=== PATIENT | female | born 1940 | race Caucasian/White ===

== ENCOUNTER 2021-08-11 14:37 | Outpatient (CLI) | payer MEDICARE, SELFPAY ==
--- NOTE | 2021-08-11 14:45 | USCV_ITS ---
Elena Gaines Age: 81 Gender: F : 1940 Exam Date: 08/11/2021 15:03 Ordering Phys: Yrn Sánchez MD Technologist: Fay Chang Exam Location: [facility] – [place] Indication: CHF BP: 126 / 61 HR: 60 Rhythm: Sinus Technical Quality: Adequate MEASUREMENTS (Male / Female) Normal Values 2D ECHO LV Diastolic Diameter PLAX 4.3 cm 4.2 - 5.9 / 3.9 - 5.3 cm LV Systolic Diameter PLAX 2.8 cm IVS Diastolic Thickness 1.5 cm 0.6 - 1.0 / 0.6 - 0.9 cm IVS Systolic Thickness 2.0 cm LVPW Diastolic Thickness 1.8 cm 0.6 - 1.0 / 0.6 - 0.9 cm LVPW Systolic Thickness 2.4 cm RV Chamber Size 2.3 cm LVOT Diameter 2.0 cm LV Ejection Fraction 2D Teich 63.4 % LV Ejection Fraction MOD 2C 47.1 % LV Ejection Fraction 2C AL 48.9 % LA Diameter 4.6 cm LA Width 4.0 cm LA Height 4.7 cm RA Width 3.8 cm RA Height 3.6 cm Aorta at Sinotubular Diameter 1.8 cm DOPPLER AV Peak Velocity 164.0 cm/s LVOT Peak Velocity 156.0 cm/s AV Area Cont Eq vti 3.8 cm squared AV Area Cont Eq pk 3.0 cm squared MV Area PHT 5.0 cm squared Mitral E to A Ratio 0.8 MV E' Velocity 42.5 cm/s Mitral E to MV E' Ratio 9.9 Mitral E to LV E' Lateral Ratio 7.9 Mitral E to LV E' Septal Ratio 13.2 TR Peak Velocity 270.0 cm/s TR Peak Gradient 29.2 mmHg PV Peak Velocity 115.0 cm/s RV Acceleration Time 0.1 s RV Ejection Time 0.3 s RV AcT/ET 0.3 FINDINGS Left Ventricle Normal left ventricular cavity size. Normal left ventricular systolic function. No regional wall motion abnormalities. Left ventricular ejection fraction is estimated at 55 %. Grade I/IV diastolic dysfunction (abnormal relaxation filling pattern), normal to mildly elevated filling pressures. Right Ventricle Normal right ventricular size. RVSP could not be calculated due to incomplete tricuspid regurgitation velocity profile. Right Atrium The right atrium is normal in size. Left Atrium The left atrium is normal in size. Mitral Valve Moderately thickened mitral valve. Moderate to severe mitral annular calcification. No mitral valve stenosis. Trace mitral valve regurgitation. Aortic Valve Aortic valve sclerosis without stenosis trace regurgitation. Tricuspid Valve Structurally normal tricuspid valve without significant stenosis or regurgitation. Pulmonary artery systolic pressure is normal. Pulmonic Valve Structurally normal pulmonic valve without significant stenosis. There is no pulmonic regurgitation. Pericardium Normal pericardium without effusion. Aorta Normal ascending aorta dimension. CONCLUSIONS 1-Normal left ventricular cavity size. Normal left ventricular systolic function. No regional wall motion abnormalities. Left ventricular ejection fraction is estimated at 55 %. Grade I/IV diastolic dysfunction (abnormal relaxation filling pattern), normal to mildly elevated filling pressures. 2-Moderately thickened mitral valve. Moderate to severe mitral annular calcification. No mitral valve stenosis. Trace mitral valve regurgitation. 3-Aortic valve sclerosis without stenosis trace regurgitation possible bioprosthetic aortic valve. 4-Normal right ventricular size. RVSP could not be calculated due to incomplete tricuspid regurgitation velocity profile. 5-Right atrial pressure is around 5 mm of mercury. Chito Andres MD (Electronically Signed) Final Date: 12 August 2021 13:14 S
== END 2021-08-11 14:38 | disposition home or self-care (01) ==
LOC: US 14:42
PROVIDERS: PCP Family Medicine; Visit Provider Family Medicine
DX: I50.9 Heart failure, unspecified (principal); I08.0 Rheumatic disorders of both mitral and aortic valves
CPT/HCPCS: 93306

== ENCOUNTER → 2022-05-03 16:22 | Outpatient (BNVA) | payer MEDICARE, SELFPAY | PROVIDERS: PCP Family Medicine; Visit Provider Family Medicine | DX: M10.9 Gout, unspecified (principal); G47.33 Obstructive sleep apnea (adult) (pediatric); I10 Essential (primary) hypertension; I35.0 Nonrheumatic aortic (valve) stenosis; E78.5 Hyperlipidemia, unspecified | CPT/HCPCS: 80053; 80061; 84550; 85025; 85610 ==

== ENCOUNTER → 2022-08-09 09:05 | Outpatient (BNVA) | payer MEDICARE, SELFPAY | PROVIDERS: PCP Family Medicine; Visit Provider Family Medicine | DX: Z79.01 Long term (current) use of anticoagulants (principal) | CPT/HCPCS: 85610 ==

== ENCOUNTER → 2022-09-06 09:38 | Outpatient (BNVA) | payer MEDICARE, SELFPAY | PROVIDERS: PCP Family Medicine; Visit Provider Family Medicine | DX: Z00.00 Encounter for general adult medical examination without abnormal findings (principal); I10 Essential (primary) hypertension | CPT/HCPCS: 80053; 85025 ==

== ENCOUNTER → 2022-09-17 11:49 | Outpatient (BNVA) | payer MEDICARE, SELFPAY | PROVIDERS: PCP Family Medicine; Visit Provider Family Medicine | DX: Z00.00 Encounter for general adult medical examination without abnormal findings (principal); I10 Essential (primary) hypertension; Z95.2 Presence of prosthetic heart valve; I80.9 Phlebitis and thrombophlebitis of unspecified site | CPT/HCPCS: 85610 ==

== ENCOUNTER → 2022-10-23 14:31 | Outpatient (BNVA) | payer MEDICARE, SELFPAY | PROVIDERS: PCP Family Medicine; Visit Provider Family Medicine | DX: Z95.2 Presence of prosthetic heart valve (principal); Z79.01 Long term (current) use of anticoagulants | CPT/HCPCS: 85610 ==

== ENCOUNTER → 2023-01-22 10:33 | Outpatient (BNVA) | payer MEDICARE, SELFPAY | PROVIDERS: PCP Family Medicine; Visit Provider Family Medicine | DX: Z95.2 Presence of prosthetic heart valve (principal) | CPT/HCPCS: 85610 ==

== ENCOUNTER → 2023-03-06 08:26 | Outpatient (BNVA) | payer MEDICARE, SELFPAY | PROVIDERS: PCP Family Medicine; Visit Provider Family Medicine | DX: I10 Essential (primary) hypertension (principal); E78.5 Hyperlipidemia, unspecified; I35.0 Nonrheumatic aortic (valve) stenosis; Z95.2 Presence of prosthetic heart valve; Z79.01 Long term (current) use of anticoagulants | CPT/HCPCS: 80053; 80061; 85025; 85610 ==

== ENCOUNTER → 2023-05-28 08:28 | Outpatient (BNVA) | payer MEDICARE, SELFPAY | PROVIDERS: PCP Family Medicine; Visit Provider Family Medicine | DX: Z79.01 Long term (current) use of anticoagulants (principal) | CPT/HCPCS: 85610 ==

== ENCOUNTER 2024-02-20 20:21 | Emergency (ER) | payer MEDICARE, SELFPAY ==
[2024-02-20 20:36] VITALS: BP 175/73; PULSE 95; RESP 20; TEMP 36.8; O2SAT 97; BMI 30.2
--- NOTE | 2024-02-20 21:06 | W.ED.DENTAL ---
HPI - Dental/Oral General: Chief complaint: Dental/Oral Stated complaint: Tooth/Mouth Pain Time Seen by Provider: 02/20/24 20:59 History of Present Illness: Patient presents to the ER with bleeding from the right dental procedure. This is a right lower molar area. Patient says that she went to the dentist this morning approximately 9:30 AM and had a bridge removed and her Coumadin was 2.5 and the dentist said if she was okay as long as she was under 3 but she has been bleeding and sleeping all day long. Patient tried to call the dentist before coming to the ER but was unavailable. And should appear for further evaluation and treatment. Review of Systems General: Reports: 10 or more systems reviewed and unremarkable except in HPI and below PFSH ED PFSH: Medical History Gout Obstructive sleep apnea Hyperlipidemia ASHD (arteriosclerotic heart disease) HTN (hypertension) Aortic stenosis Anticoagulant long-term use Surgical History S/P AVR (aortic valve replacement) Mechanical Family History Father Cancer LUNG Brother Cancer LUNG S/P PTCA (percutaneous transluminal coronary angioplasty) CAD (coronary artery disease) Sister S/P PTCA (percutaneous transluminal coronary angioplasty) CAD (coronary artery disease) Cancer BREAST Social History Smoking and tobacco/nicotine status: never used tobacco/nicotine Marital status: / Current occupational status: retired Physical Exam Const: COMMON NORMALS: no acute distress, average body habitus, patient oriented x3, no limitations, healthy appearing, alert and well nourished HENMT: COMMON NORMALS: normocephalic, atraumatic, hearing grossly normal bilaterally, external ears normal and Normal external nose present; gingiva not normal (Bleeding coming from the right lower molar area where surgery was performed) HEAD & SCALP: normocephalic and atraumatic NOSE: Normal external nose present EXTERNAL EAR: Yes external ears normal Neck/C-Spine: COMMON NORMALS: no JVD Chest: COMMONS NORMALS: normal inspection of the chest and normal palpation of entire chest wall Resp: COMMON NORMALS: normal respiratory effort, No retractions, No use of accessory muscles and clear to auscultation bilaterally AUSCULTATION: clear to auscultation bilaterally Cardio: COMMON NORMALS: no JVD, regular rate, regular rhythm, S1 normal heart sound present, S2 normal heart sound present, No gallops present (Cardio), No clicks present (Cardio), No murmurs present (Cardio) and No rub (Cardio) RATE: regular rate RHYTHM: regular rhythm HEART SOUNDS: S1 normal heart sound present and S2 normal heart sound present GI: COMMON NORMALS: Normal to inspection, nondistended, normoactive bowel sounds present, Soft to palpation, non-tender and No hepatosplenomegaly present PALPATION: Yes Soft to palpation and Yes No hepatosplenomegaly present Neuro: COMMON NORMALS: patient oriented x3 SENSORIUM/ORIENTATION: Yes alert Course Vital Signs: Vital signs: Vital Signs Temperature 98.2 F 02/20/24 20:36 Pulse Rate 95 02/20/24 20:36 Respiratory Rate 20 H 02/20/24 20:36 Blood Pressure 175/73 02/20/24 20:36 Pulse Oximetry 97 02/20/24 20:36 [facility] - Dental/Oral Medical Decision Making Patient was bleeding from her post bridge removal on her right lower mandibular area. Patient had gauze soaked in TXA placed on the area. This stopped her bleeding. Patient be discharged home. Differential Diagnosis Unlikely gingival abscess, dental caries, toothache, dental abscess, fracture of tooth or aphthous ulcer Medical Records I reviewed the patient's medical records. Lab Data I reviewed the patient's lab results. No radiology studies performed this visit Discharge Plan Discharge Patient Disposition: Home Clinical Impression: Postoperative bleeding from mouth Condition: Stable Prescriptions: No Action potassium 99 mg tablet PO DAILY furosemide 40 mg tablet 40 mg PO DAILY Qty: 90 11RF Mag 64 64 mg tablet,delayed release (DR/EC) 64 mg PO DAILY Qty: 90 3RF metoprolol tartrate 50 mg tablet 50 mg PO BID Qty: 180 3RF warfarin 2 mg tablet 2 mg PO DAILY Qty: 60 11RF warfarin 3 mg tablet 3 mg PO DAILY Qty: 90 3RF Rx Instructions: total daily dose of 7mg daily simvastatin 40 mg tablet 40 mg PO DAILY Qty: 90 11RF allopurinol 300 mg tablet 300 mg PO DAILY Qty: 90 11RF hydralazine 25 mg tablet 25 mg PO BID Qty: 180 3RF warfarin 4 mg tablet 4 mg PO DAILY Qty: 30 11RF Discharge Orders: Discharge ED (Routine); Ordered 02/20/24 Ordered By: Wan Cherry Referrals: Lowell Dumas MD [Primary Care Provider] - 1 week Patient Instructions: Postoperative Bleeding (ED) Activity Restrictions/Additional Instructions: Please try not to remove the clot over your surgical area of your tongue this may cause bleeding. If this happens please feel free to try a very cold compress such as a wrapped ice cube and put pressure to the area. If this does not stop please feel free to return to the ER. Otherwise follow-up with your dentist in the morning for definitive treatment. Coding Level of Care Code ED Telehealth Nurse Educator for Lucía Perez
[2024-02-20] MEDS: tranexamic acid 1,000 mg/10mL SDV 1000 MG XX (21:10)
== END 2024-02-20 22:46 | disposition home or self-care (01) ==
PROVIDERS: Emergency Provider Emergency Medicine; PCP Family Medicine
DX: K91.840 Postprocedural hemorrhage of a digestive system organ or structure following a digestive system procedure (principal); Z79.01 Long term (current) use of anticoagulants; E78.5 Hyperlipidemia, unspecified; I10 Essential (primary) hypertension
CPT/HCPCS: 99283

== ENCOUNTER 2024-09-22 13:47 | Outpatient (CLI) | payer MEDICARE, SELFPAY ==
--- NOTE | 2024-09-22 13:51 | XR_ITS ---
WS: [id number] DEXA (DUAL ENERGY X-RAY ABSORPTIOMETRY) Bone mineral density was performed using a Librato machine. HISTORY: OSTEOPOROSIS COMPARISON: None available. Lumbar spine BMD (L1-L4): 1.357 g/cm2 T score: 1.5 Z score: 2.2 Total hip BMD: Left: 1.003 g/cm2. T score: 0.0 Z score: 1.4 Right: 0.894 g/cm2. T score: -0.9 Z score: 0.5 10 year probability of a major osteoporotic fracture is 9.6%. XR/XR DEXA axial skeleton* 07036 IMPRESSION: NORMAL BONE MINERAL DENSITY based upon the WHO classification for females.
== END 2024-09-22 13:48 | disposition home or self-care (01) ==
LOC: RAD 13:47
PROVIDERS: PCP Family Medicine; Visit Provider Family Medicine
DX: Z13.820 Encounter for screening for osteoporosis (principal); M81.0 Age-related osteoporosis without current pathological fracture
CPT/HCPCS: 77080

== ENCOUNTER 2024-11-14 14:29 | Observation (INO) | payer MEDICARE, SELFPAY ==
[2024-11-14] VITALS (13 sets, daily range): BP systolic 140–182; BP diastolic 64–106; PULSE 91–121; RESP 15–34; TEMP 36.8; O2SAT 88–98; BMI 34.6
--- NOTE | 2024-11-14 14:33 | XRR_ITS ---
PROCEDURE INFORMATION: Exam: XR Chest Exam date and time: 11/14/2024 3:04 PM Age: 84 years old Clinical indication: Shortness of breath; Prior surgery; Surgery date: 6+ months; Surgery type: Cabg; Additional info: SOB; Afib TECHNIQUE: Imaging protocol: Radiologic exam of the chest. Views: 1 view. COMPARISON: No relevant prior studies available. FINDINGS: Lungs: No focal consolidation. Pleural spaces: No evidence of pneumothorax. No evidence of pleural effusion. 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 Bones/joints: No evidence of acute osseous abnormality. XR/XR chest 1V portable [id number] IMPRESSION: 1. No acute cardiopulmonary abnormality.
--- NOTE | 2024-11-14 14:37 | ECG_ITS ---
[facility] Date: 2024-11-14 Pat Name: Elena Gaines Department: Room: Gender: Female Color Weigher: : 1940 Requested By: Lucina Denise Order Number: [id number] Lino MD: Noe Palacios M.D. Measurements Intervals Perry Rate: 118 P: 0 DE: 0 QRS: 38 QRSD: 145 T: 81 QT: 302 QTc: 423 Interpretive Statements ATRIAL FIBRILLATION WITH RAPID VENTRICULAR RESPONSE INTRAVENTRICULAR CONDUCTION DELAY [130+ ms QRS DURATION] No previous ECG available for comparison Electronically Signed On 11-14-2024 21:23:53 CORRECTIVE THERAPIST by Noe Palacios M.D. [email or web address]
--- NOTE | 2024-11-14 14:48 | ED_ITS ---
HPI - Arrhythmia/Palpitations 2 General: Chief Complaint: Arrhythmia/Palpitations Stated Complaint: afib Time Seen by Provider: 11/14/24 14:33 History of Present Illness: 84-year-old woman with a history of [facility] anical aortic valve replacement on chronic Coumadin therapy, hypertension, hyperlipidemia who presents emergency room with cough and shortness of breath. She has had a cough for a couple of days and then has become short of breath. She was seen and urgent care today and sent to the emergency room because she was in atrial fibrillation with rapid ventricular response there. She has no history of this. She reports painful cough. Shortness of breath. Malaise. No known fevers. No altered mental status. She has had a headache and shortness of breath. Related Data Home Medications Medication Instructions Recorded Confirmed potassium 99 mg tablet mg PO DAILY 04/19/20 11/14/24 Previous Rx's Medication Instructions Recorded warfarin 2 mg tablet 2 mg PO DAILY #60 tabs 01/28/23 magnesium chloride 64 mg 64 mg PO DAILY #90 tabs 03/06/23 (magnesium chloride) tablet,delayed release (Mag 64) metoprolol tartrate 50 mg tablet 50 mg PO BID #180 tabs 03/06/23 warfarin 3 mg tablet 3 mg PO DAILY #90 tabs 03/09/23 simvastatin 40 mg tablet 40 mg PO DAILY #90 tabs 05/22/23 allopurinol 300 mg tablet 300 mg PO DAILY #90 tabs 07/18/23 warfarin 4 mg tablet 4 mg PO DAILY #30 tabs 02/19/24 furosemide 40 mg tablet 40 mg PO DAILY #90 tabs 06/10/24 spironolactone 25 mg tablet 25 mg PO BID #60 tabs 06/12/24 hydralazine 25 mg tablet 25 mg PO BID #180 tabs 08/13/24 Allergies Allergy/AdvReac Type Severity Reaction Status Date / Time amlodipine Allergy Unknown Unknown Verified 11/14/24 13:28 benazepril Allergy Unknown Unknown Verified 11/14/24 13:28 lisinopril AdvReac cough Verified 11/14/24 13:28 Review of Systems 2 Narrative: Constitutional symptoms: Negative except as documented in HPI. Skin symptoms: Negative except as documented in HPI. Eye symptoms: Negative except as documented in HPI. ENMT symptoms: Negative except as documented in HPI. Respiratory symptoms: Negative except as documented in HPI. Cardiovascular symptoms: Negative except as documented in HPI. Gastrointestinal symptoms: Negative except as documented in HPI. Genitourinary symptoms: Negative except as documented in HPI. Musculoskeletal symptoms: Negative except as documented in HPI. Neurologic symptoms: Negative except as documented in HPI. Psychiatric symptoms: Negative except as documented in HPI. Endocrine symptoms: Negative except as documented in HPI. PFSH ED 2 PFSH: Medical History Gout Obstructive sleep apnea Hyperlipidemia ASHD (arteriosclerotic heart disease) HTN (hypertension) Aortic stenosis Anticoagulant long-term use Surgical History S/P AVR (aortic valve replacement) Mechanical Family History Father Cancer LUNG Brother Cancer LUNG S/P PTCA (percutaneous transluminal coronary angioplasty) CAD (coronary artery disease) Sister S/P PTCA (percutaneous transluminal coronary angioplasty) CAD (coronary artery disease) Cancer BREAST Social History Smoking and tobacco/nicotine status: never used tobacco/nicotine Marital status: / Current occupational status: retired Physical Exam 2 Narrative: EXAM NARRATIVE: General: Alert, no acute distress. Skin: Warm, dry. Head: Normocephalic, atraumatic. Neck: Supple, trachea midline. Eye: Extraocular movements are intact. Ears, nose, mouth and throat: mucosa moist. Cardiovascular: Tachycardic, irregular, Normal peripheral perfusion. No edema Respiratory: Lungs are clear to auscultation, respirations are non-labored, breath sounds are equal, Symmetrical chest wall expansion. Gastrointestinal: Soft, Nontender, Non distended Musculoskeletal: Normal ROM, no deformity. Neurological: Alert and oriented, No focal neurological deficit observed. Psychiatric: Cooperative, appropriate mood & affect. Course 2 Vital Signs: Vital signs: Vital Signs Temperature 98.2 F 11/14/24 14:33 Pulse Rate 111 H 11/14/24 19:23 Respiratory Rate 17 11/14/24 19:23 Blood Pressure 182/87 11/14/24 19:23 Pulse Oximetry 97 11/14/24 19:23 Oxygen Delivery Me thod Room Air 11/14/24 19:23 MDM - Arrhythmia/Palpitations Medical Decision Making Differential diagnosis for patient with shortness of breath includes but is not limited to and based on the above HPI, review of systems and physical exam: Pneumonia. Bronchitis. Asthma or COPD with acute exacerbation. Acute coronary syndrome / IN. Pulmonary embolism. Anxiety. Congestive heart failure. Viral infections including influenza and Covid-19. Atrial fibrillation. Anxiety. Pleural effusion. Pneumothorax. Orders placed to evaluate differential diagnosis based on the above differential, HPI and physical exam EKG: Time 1437. Rate 118. Atrial fibrillation with rapid ventricular response, No ST-T changes, no ectopy, This was reviewed and interpreted by myself the ER physician at 1440 Repeat EKG: Time 1701. Rate 94. Atrial fibrillation with controlled rate, No ST-T changes, no ectopy, This was reviewed and interpreted by myself the ER physician 1704. Rate has decreased by about 25 bpm. As compared to EKG taken previously in the emergency room today. Chest x-ray: No acute process. No infiltrate. No pneumothorax. This was reviewed and interpreted by myself the emergency room physician. I also reviewed the radiology report.: No cardiomegaly. No obvious infiltrates. No pneumothorax. Patient does have sternotomy wires. CT of the chest without contrast: No acute cardiopulmonary abnormalities. This was reviewed and interpreted by myself the emergency room physician. I also reviewed the radiology report. Lab Review: Laboratory results were reviewed and interpreted by myself the emergency room physician. Patient has some leukocytosis with a white count of 16,000. However this is not left shifted. BUN/creatinine are 53 and 2. This is slightly above her baseline. She does have some chronic kidney disease. Creatinine has ranged between 1.3 and 1.9 on previous lab draws. INR is significantly elevated at 7.86 UpToDate Recommendation for Warfarin toxicity without bleeding INR >10 without bleeding ? If the INR is >10 and the patient does not have clinically significant bleeding, warfarin should be held until the INR falls into the therapeutic range. Vitamin K can be administered as an oral dose of 2.5 to 5 mg, depending on the bleeding risk of the patient INR 4.5 to 10 without bleeding ? If the INR is between 4.5 and 10 and the patient does not have clinically significant bleeding, warfarin is held temporarily (eg, one or two doses), with or without administration of a small dose of oral vitamin K (1 to 2.5 mg) low dose of oral vitamin K for individuals with a greater risk of bleeding (eg, older, prior bleeding) and a lower risk of thromboembolism. ?Older age (odds ratio [OR] 1.2 per decade of life) ?Higher index INR (OR 1.25 per unit of elevation) ?Lower warfarin maintenance dose (OR 0.87 per 10 mg increase in total weekly dose) ?Decompensated heart failure (OR 2.79; 95% CI 1.30-5.98) ?Active cancer (OR 2.48; 95% CI 1.11-5.57) I reviewed the patient's medical record. Reexamination: Patient heart rate has come down from the 130s and 120s to around 100-110. No altered mental status. No acute increased work of breathing. No oxygen requirements. Consultation: I spoke with Dr. Dickerson who is on-call for the hospitalist service who agrees to admission. Assessment and plan: Bronchitis Coumadin toxicity New onset atrial fibrillation A-fib with RVR Leukocytosis Hypertension ?2.5 mg p.o. vitamin K. Holding Coumadin. IV doxycycline. IV Decadron. -I discussed the patient with the hospitalist on-call who is admitting the patient. - Discussed findings and plan with patient. Answered any questions. - All laboratory values were reviewed and interpreted personally by myself, the ER physician - All imaging was reviewed and interpreted personally by myself, the ER physician. - Evaluation and treatment of this problem were appropriate in the emergency setting Lab Data 11/14/24 14:51 11/14/24 14:51 Radiology Impressions Chest X-Ray 11/14/24 14:33 IMPRESSION: 1. No acute cardiopulmonary abnormality. Chest CT 11/14/24 16:09 IMPRESSION: 1. No evidence of acute abnormality within limitations of a noncontrast exam. 2. Right-sided thyroid nodule. Correlation with thyroid function tests and follow-up outpatient thyroid ultrasound is recommended. Laboratory Results WBC 16.31 10^3/uL (3.29-11.43) H 11/14/24 14:51 RBC 4.52 10^6/uL (3.85-5.65) 11/14/24 14:51 Hgb 13.10 g/dL (11.27-16.99) 11/14/24 14:51 Hct 40.4 % (36-47) 11/14/24 14:51 MCV 89.4 fl (85-98) 11/14/24 14:51 MCH 29.0 pg (27-33) 11/14/24 14:51 MCHC 32.4 g/dL (30-55) 11/14/24 14:51 RDW 14.0 % (12.1-15.1) 11/14/24 14:51 Plt Count 324 10^3/cmm (157-399) 11/14/24 14:51 MPV 10.0 fL (7.4-10.4) 11/14/24 14:51 Neut % (Auto) 58.7 % 11/14/24 14:51 Lymph % (Auto) 33.8 % 11/14/24 14:51 [place] % (Auto) 7.0 % 11/14/24 14:51 Eos % (Auto) 0.1 % 11/14/24 14:51 Baso % (Auto) 0.2 % 11/14/24 14:51 Neut # (Auto) 9.56 10^3/uL (1.8-7.7) H 11/14/24 14:51 Lymph # (Auto) 5.5 10^3/uL (0.8-4.8) H 11/14/24 14:51 [place] # (Auto) 1.1 10^3/uL (0.2-0.9) H 11/14/24 14:51 Eos # (Auto) 0.0 10^3/uL (0.0-0.8) 11/14/24 14:51 Baso # (Auto) 0.0 10^3/uL (0.0-0.1) 11/14/24 14:51 Nucleated RBC % (auto) 0 % 11/14/24 14:51 Nucleated RBCs # 0.0 /100WBC 11/14/24 14:51 PT 69.60 SECONDS (12.1-14.9) H 11/14/24 14:51 INR 7.86 (0.8-1.2) H* 11/14/24 14:51 APTT 166.6 SECONDS (23.9-36.7) H* 11/14/24 14:51 Sodium 132 mmol/L (136-145) L 11/14/24 14:51 Potassium 4.4 mmol/L (3.5-5.1) 11/14/24 14:51 Chloride 92 mmol/L (98-107) L 11/14/24 14:51 Carbon Dioxide 23 mmol/L (22-29) 11/14/24 14:51 Anion Gap 21.4 (5-19) H 11/14/24 14:51 BUN 53 mg/dL (8-23) H 11/14/24 14:51 Creatinine 2.0 mg/dL (0.5-0.9) H 11/14/24 14:51 GFR Calculation Not Reportable 11/14/24 14:51 Glucose 109 mg/dL (65-115) 11/14/24 14:51 Calculated Osmolality 289 mOsm/kg (285-295) 11/14/24 14:51 Lactic Acid 1.8 mmol/L (0.5-2.2) 11/14/24 14:51 Calcium 11.3 mg/dL (8.5-10.5) H 11/14/24 14:51 Magnesium 2.1 mg/dL (1.7-2.3) 11/14/24 14:51 Total Bilirubin 0.3 mg/dL (0.15-1.2) 11/14/24 14:51 AST 44 U/L (0-32) H 11/14/24 14:51 ALT 36 U/L (0-33) H 11/14/24 14:51 Alkaline Phosphatase 123 U/L (35-105) H 11/14/24 14:51 Troponin T Baseline 25 ng/L (0-10) H 11/14/24 14:51 Troponin T 120 Minute 23.09 ng/L (0-10) H 11/14/24 17:55 Delta Troponin T -1.91 ABS# (0-10) L 11/14/24 17:55 NT-Pro-B Natriuret Pep 1787 pg/mL (0-450) H 11/14/24 14:51 Total Protein 8.1 g/dL (6.6-8.7) 11/14/24 14:51 Albumin 4.2 g/dL (3.5-5.2) 11/14/24 14:51 Globulin 3.9 g/dL (1.3-4.6) 11/14/24 14:51 TSH 0.98 uIU/mL (0.27-4.20) 11/14/24 14:51 Urine Color Dark yellow (Yellow) A 11/14/24 17:38 Urine Appearance Clear (CLEAR) 11/14/24 17:38 Urine pH 5.0 (5-7) 11/14/24 17:38 Ur Specific [place] 1.022 (1.005-1.030) 11/14/24 17:38 Urine Protein Negative (Negative) 11/14/24 17:38 Urine Glucose (UA) Negative (Normal) 11/14/24 17:38 Urine Ketones 1+ (Negative) H 11/14/24 17:38 Urine Blood Negative (Negative) 11/14/24 17:38 Urine Nitrate Negative (Negative) 11/14/24 17:38 Urine Bilirubin Negative (Negative) 11/14/24 17:38 Urine Urobilinogen 0.2 mg/dL (Negative) 11/14/24 17:38 Ur Leukocyte Esterase 1+ (Negative) A 11/14/24 17:38 Urine RBC 0-2 /hpf (0-2) 11/14/24 17:38 Urine WBC 11-20 /hpf (0-5) H 11/14/24 17:38 Ur Squamous Epith Cells 0-5 /hpf (0-5) 11/14/24 17:38 Amorphous Sediment Not Reportable 11/14/24 17:38 Urine Bacteria None seen /hpf (NONE) 11/14/24 17:38 Hyaline Casts 8.26 /lpf 11/14/24 17:38 Adenovirus (PCR) Not detected (NOT DETECT) 11/14/24 16:59 C. pneumoniae DNA (PCR) Not detected (NOT DETECT) 11/14/24 16:59 Coronavirus (PCR) Negative (Negative) 11/14/24 14:46 Coronavirus 229E (PCR) Not detected (NOT DETECT) 11/14/24 16:59 Human Metapneumovir PCR Not detected (NOT DETECT) 11/14/24 16:59 Influenza A (H1) PCR Not detected (NOT DETECT) 11/14/24 16:59 Influenza A (PCR) Negative (Negative) 11/14/24 14:46 Influ A (H1/09) PCR Not detected (NOT DETECT) 11/14/24 16:59 Influenza A (H3) PCR Not detected (NOT DETECT) 11/14/24 16:59 Influenza Type A (PCR) Not detected (NOT DETECT) 11/14/24 16:59 Influenza Type B (PCR) Not detected (NOT DETECT) 11/14/24 16:59 M. pneumoniae (PCR) Not detected (NOT DETECT) 11/14/24 16:59 Parainfluenza 1 (PCR) Not detected (NOT DETECT) 11/14/24 16:59 Parainfluenza 2 (PCR) Not detected (NOT DETECT) 11/14/24 16:59 Parainfluenza 3 (PCR) Not detected (NOT DETECT) 11/14/24 16:59 Parainfluenza 4 (PCR) Not detected (NOT DETECT) 11/14/24 16:59 RSV (PCR) Negative (Negative) 11/14/24 14:46 RSV Type A (PCR) Not detected (NOT DETECT) 11/14/24 16:59 RSV Type B (PCR) Not detected (NOT DETECT) 11/14/24 16:59 Entero/Rhino (PCR) Not detected (NOT DETECT) 11/14/24 16:59 SARS-CoV-2 (PCR) Not detected (NOT DETECT) 11/14/24 16:59 All radiology interpretation(s) finalized by discharge Discharge Plan Discharge Condition: Stable Prescriptions: No Action potassium 99 mg tablet PO DAILY Mag 64 64 mg tablet,delayed release (DR/EC) 64 mg PO DAILY Qty: 90 3RF metoprolol tartrate 50 mg tablet 50 mg PO BID Qty: 180 3RF warfarin 2 mg tablet 2 mg PO DAILY Qty: 60 11RF warfarin 3 mg tablet 3 mg PO DAILY Qty: 90 3RF Rx Instructions: total daily dose of 7mg daily simvastatin 40 mg tablet 40 mg PO DAILY Qty: 90 11RF allopurinol 300 mg tablet 300 mg PO DAILY Qty: 90 11RF warfarin 4 mg tablet 4 mg PO DAILY Qty: 30 11RF furosemide 40 mg tablet 40 mg PO DAILY Qty: 90 11RF spironolactone 25 mg tablet 25 mg PO BID Qty: 60 11RF hydralazine 25 mg tablet 25 mg PO BID Qty: 180 3RF Referrals: Lowell Dumas MD [Primary Care Provider] - Coding Level of Care Code ED Crane Follower for Chg Fwd
[2024-11-14 15:03] LABS: Basophils % 0.2 %; Eosinophils % 0.1 %; Hematocrit 40.4 % (36-47); Lymphocytes # 5.5 10^3/uL (0.8-4.8); Lymphocytes % 33.8 %; Mean Corpuscular HGB Conc 32.4 g/dL (30-55); Mean Corpuscular Volume 89.4 fl (85-98); Monocytes # 1.1 10^3/uL (0.2-0.9); Neutrophils # 9.56 10^3/uL (1.8-7.7); Neutrophils % 58.7 %; Nucleated Red Blood Cells % 0 %; Platelet Count 324 10^3/cmm (157-399); Red Blood Count 4.52 10^6/uL (3.85-5.65); White Blood Count 16.31 10^3/uL (3.29-11.43)
--- NOTE | 2024-11-14 15:05 | PC.NURSE ---
Patient requesting Tylenol for her headache. Reports that she usually takes this at home and was not able to today. Verbal order from Dr Marquez for Tylenol po 1 gm. RBVO and placed.
[2024-11-14] MEDS: acetaminophen 500 mg Tablet 1000 MG PO (15:08)
[2024-11-14 15:20] LABS: Slide Review Slide Review Perform
[2024-11-14 15:21] LABS: Troponin(5th) Baseline 25 ng/L (0-10)
[2024-11-14 15:22] LABS: Lactic Sepsis W/Reflex 1.8 mmol/L (0.5-2.2)
[2024-11-14 15:35] LABS: INR 7.86 (0.8-1.2); Partial Thromboplastin Time 166.6 SECONDS (23.9-36.7)
[2024-11-14 15:36] LABS: Alanine Aminotransferase 36 U/L (0-33); Albumin Level 4.2 g/dL (3.5-5.2); Alkaline Phosphatase 123 U/L (35-105); Anion Gap 21.4 (5-19); Aspartate Amino Transferase 44 U/L (0-32); Blood Urea Nitrogen 53 mg/dL (8-23); Calcium 11.3 mg/dL (8.5-10.5); Carbon Dioxide 23 mmol/L (22-29); Chloride 92 mmol/L (98-107); Creatinine Clr Calc Pharmacy 23.3551; Globulin 3.9 g/dL (1.3-4.6); Glucose 109 mg/dL (65-115); Magnesium 2.1 mg/dL (1.7-2.3); Osmolality Calculated 289 mOsm/kg (285-295); Potassium 4.4 mmol/L (3.5-5.1); Sodium 132 mmol/L (136-145); Total Bilirubin 0.3 mg/dL (0.15-1.2); Total Protein 8.1 g/dL (6.6-8.7)
[2024-11-14 15:39] LABS: Covid PCR NEGATIVE (Negative); Influenza A NEGATIVE (Negative); Influenza B NEGATIVE (Negative); Respiratory Syncytial Virus Ce NEGATIVE (Negative)
[2024-11-14 15:54] LABS: NT Pro B Type Natriuretic Pept 1787 pg/mL (0-450); Thyroid Stimulating Hormone 0.98 uIU/mL (0.27-4.20)
--- NOTE | 2024-11-14 16:09 | CTR_ITS ---
PROCEDURE INFORMATION: Exam: CT Chest Without Contrast; Diagnostic Exam date and time: 11/14/2024 4:33 PM Age: 84 years old Clinical indication: Abnormal findings; Abnormal radiologic exam of lung or chest; Prior surgery; Surgery date: 6+ months; Surgery type: Heart; Additional info: Abnormal chest xray TECHNIQUE: Imaging protocol: Diagnostic computed tomography of the chest without contrast. Radiation optimization: All CT scans at this facility use at least one of these dose optimization techniques: automated exposure control; mA and/or kV adjustment per patient size (includes targeted exams where dose is matched to clinical indication); or iterative reconstruction. COMPARISON: CR (CHEST, ) 11/14/2024 3:04 PM RADIATION DOSE METRICS: Total DLP (mGy-cm): 433.65 FINDINGS: Thyroid: Inferior right thyroid nodule measuring approximately 2.5 cm extending into the superior mediastinum. Correlation with thyroid function tests and follow-up outpatient thyroid ultrasound is recommended. Lungs: No focal consolidation. No pneumothorax. Pleural spaces: No pleural effusion. Heart: No cardiomegaly. No pericardial effusion. Coronary arteries: There are incidental coronary artery calcifications. Mediastinal space: Trachea and airway are grossly patent. Postsurgical changes of the mediastinum compatible with prior aortic valve replacement and ascending aortic/root repair. Lymph nodes: No evidence of mediastinal adenopathy. Evaluation for hilar adenopathy is limited by lack of IV contrast. Vasculature: Atherosclerosis without evidence of aneurysmal dilatation of the thoracic aorta. Evaluation for acute vascular injury or thrombosis is limited by lack of IV contrast. Bones/joints: No evidence of acute fracture or aggressive osseous lesion. Soft tissues: No evidence of fluid collection or hematoma in the superficial soft tissues. Other findings: No evidence of acute abnormality in the upper abdomen. CT/CT chest wo con [id number] IMPRESSION: 1. No evidence of acute abnormality within limitations of a noncontrast exam. 2. Right-sided thyroid nodule. Correlation with thyroid function tests and follow-up outpatient thyroid ultrasound is recommended.
--- NOTE | 2024-11-14 17:01 | ECG_ITS ---
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 Measurements Intervals [place] Rate: 94 P: 0 AR: 0 QRS: -9 QRSD: 103 T: 79 QT: 329 QTc: 412 Interpretive Statements ATRIAL FIBRILLATION SEPTAL MYOCARDIAL INFARCTION , OF INDETERMINATE AGE [40+ ms Q WAVE IN V1/V2] Compared to ECG 11/14/2024 14:37:27 Myocardial infarct finding now present Intraventricular conduction delay no longer present Electronically Signed On 11-14-2024 21:34:02 SNORKELLING INSTRUCTOR by Noe Palacios M.D. [email or web address]
[2024-11-14 17:48] LABS: Bilirubin Urine Negative (Negative); Blood Urine Negative (Negative); Glucose Urine UA Negative (Normal); Ketones Urine 1+ (Negative); Leukocyte Esterase Urine 1+ (Negative); Nitrate Urine Negative (Negative); Protein Urine Negative (Negative); Specific Gravity, Urine 1.022 (1.005-1.030); Urine Appearance Clear (CLEAR); Urine Color Dark Yellow (Yellow); Urobilinogen Urine 0.2 mg/dL (Negative)
[2024-11-14 17:50] LABS: Bacteria Urine None Seen /hpf; Hyaline Casts Urine 8.26 /lpf; RBC Urine 0-2 /hpf (0-2); Squamous Epithelial Cell Urine 0-5 /hpf (0-5)
[2024-11-14 17:51] LABS: Add Urine Culture? No; UA Slide Review UA Slide Review Perf
[2024-11-14] MEDS: phytonadione (ADULT) 10 mg/mL Ampule 1 mL 2.5 MG PO (18:02)
[2024-11-14 18:22] LABS: Troponin 5 2HR 23.09 ng/L (0-10)
[2024-11-14 18:23] LABS: Troponin 5 2HR Delta -1.91 ABS# (0-10)
[2024-11-14 18:51] LABS: Adenovirus Not Detected (NOT DETECT); Chlamydia Pneumoniae Not Detected (NOT DETECT); Coronavirus 229E,HKU1,NL63,OC4 Not Detected (NOT DETECT); Human Metapneumovirus Not Detected (NOT DETECT); Human Rhinovirus/Enterovirus Not Detected (NOT DETECT); Influenza A Not Detected (NOT DETECT); Influenza A H1 Not Detected (NOT DETECT); Influenza A H1-2009 Not Detected (NOT DETECT); Influenza A H3 Not Detected (NOT DETECT); Influenza B Not Detected (NOT DETECT); Mycoplasma Pneumoniae Not Detected (NOT DETECT); Parainfluenza Virus Type 1 Not Detected (NOT DETECT); Parainfluenza Virus Type 2 Not Detected (NOT DETECT); Parainfluenza Virus Type 3 Not Detected (NOT DETECT); Parainfluenza Virus Type 4 Not Detected (NOT DETECT); Respiratory Syncytial Virus A Not Detected (NOT DETECT); Respiratory Syncytial Virus B Not Detected (NOT DETECT); SARS-COV-2 Not Detected (NOT DETECT)
[2024-11-14] MEDS: dexamethasone 10 mg/mL INJ IVP (19:20)
--- NOTE | 2024-11-14 19:27 | P.HP_ITS ---
Providers/Chief Complaint 2 Primary Care Provider: Lowell Dumas MD Chief Complaint: afib History of Present Illness Elena Gaines is a 84 year old female with history of chronic anticoagulation with Coumadin, mechanical aortic valve, went to urgent care clinic for recurrent bouts of cough, generalized weakness and fatigue and blood in her sputum. Patient has been noticing excessive bouts of cough and recent blood in her sputum for last 2 to 3 days, she has not noticed any fever, no chest pain or diarrhea. P no active chest pain. From urgent care clinic she was sent to the ER for further evaluation for concern related to A-fib RVR she was tachycardic, initially she was in A-fib RVR on arrival which converted to sinus rhythm spontaneously, clinically she looks dehydrated, at home she takes Lasix on daily basis She has leukocytosis to receive doxycycline CT chest did not show pneumonia ER physician gave her vitamin K, troponin trending down She does not have history of A-fib at the time of my evaluation she is in sinus rhythm heart rate 10 5-1 10 For dehydration we will give her 500 mL LR bolus Review of Systems 2 Const: Denies: fever(s) Eyes: Denies: change in vision ENMT: Denies: throat pain Card: Denies: chest pain Resp: Reports: dyspnea, productive cough and hemoptysis GI: Denies: abdominal pain : Denies: flank pain Medications/Allergies Home Medications Medication Instructions Recorded Confirmed Last Taken Type potassium 99 mg tablet mg PO DAILY 04/19/20 11/14/24 Unknown History warfarin 2 mg tablet 2 mg PO DAILY #60 tabs 01/28/23 11/14/24 Unknown Rx magnesium chloride 64 mg 64 mg PO DAILY #90 tabs 03/06/23 11/14/24 Unknown Rx (magnesium chloride) tablet,delayed release (Mag 64) metoprolol tartrate 50 mg tablet 50 mg PO BID #180 tabs 03/06/23 11/14/24 Unknown Rx warfarin 3 mg tablet 3 mg PO DAILY #90 tabs 03/09/23 11/14/24 Unknown Rx simvastatin 40 mg tablet 40 mg PO DAILY #90 tabs 05/22/23 11/14/24 Unknown Rx allopurinol 300 mg tablet 300 mg PO DAILY #90 tabs 07/18/23 11/14/24 Unknown Rx warfarin 4 mg tablet 4 mg PO DAILY #30 tabs 02/19/24 11/14/24 Unknown Rx furosemide 40 mg tablet 40 mg PO DAILY #90 tabs 06/10/24 11/14/24 Unknown Rx spironolactone 25 mg tablet 25 mg PO BID #60 tabs 06/12/24 11/14/24 Unknown Rx hydralazine 25 mg tablet 25 mg PO BID #180 tabs 08/13/24 11/14/24 Unknown Rx Allergies Allergy/AdvReac Type Severity Reaction Status Date / Time amlodipine Allergy Unknown Unknown Verified 11/14/24 13:28 benazepril Allergy Unknown Unknown Verified 11/14/24 13:28 lisinopril AdvReac cough Verified 11/14/24 13:28 PFSH Acute 2 PFSH: Medical History (Updated 11/14/24 @ 21:30 by Chito Dickerson MD) Gout Obstructive sleep apnea Hyperlipidemia ASHD (arteriosclerotic heart disease) HTN (hypertension) Aortic stenosis Anticoagulant long-term use Surgical History (Updated 11/14/24 @ 21:30 by Chito Dickerson MD) S/P tonsillectomy S/P cataract extraction S/P AVR (aortic valve replacement) Mechanical Family History Father Cancer LUNG Brother Cancer LUNG S/P PTCA (percutaneous transluminal coronary angioplasty) CAD (coronary artery disease) Sister S/P PTCA (percutaneous transluminal coronary angioplasty) CAD (coronary artery disease) Cancer BREAST Social History Smoking and tobacco/nicotine status: never used tobacco/nicotine Marital status: / Current occupational status: retired Vitals/I&O/Wt Last Vital Signs Temp 98.2 F 11/14/24 14:33 Pulse 111 H 11/14/24 19:23 Resp 17 11/14/24 19:23 BP 182/87 11/14/24 19:23 Pulse Ox 97 11/14/24 19:23 O2 Del Method Room Air 11/14/24 19:23 11/14/24 11/14/24 11/14/24 06:59 14:59 22:59 Intake Total 0 / 0 Balance 0 / 0 Weight last 48 hrs Weight 94.347 kg Physical Exam 2 Narrative: Clinically dehydrated GCS 15 Nonfocal neuroexam Awake and alert Abdomen soft Nonfocal neuroexam S1, S2 tachycardia sinus rhythm heart rate 110 No active focal deficit currently on room air Data 11/14/24 14:51 11/14/24 14:51 Micro: Microbiology 11/14/24 14:56 Blood Culture - Preliminary Blood SPECIMEN COLLECTED 11/14/24 14:51 Blood Culture - Preliminary Blood SPECIMEN COLLECTED A&P Assessment and plan (1) S/P AVR (aortic valve replacement): (2) Anticoagulant long-term use: (3) Gout: (4) Obstructive sleep apnea: (5) Bronchitis: (6) Hemoptysis: Plan Paroxysmal A-fib Converted to sinus rhythm spontaneously Increase the dose of metoprolol to 100 mg twice a day Mechanical valve supratherapeutic INR No active bleed No need to reverse her INR at this point Hold Coumadin for now Hemoptysis likely related to bronchitis Can do 3 days of doxycycline If procalcitonin not extremely high can discontinue antibiotics at the time of discharge Clinical signs of dehydration: Hold Lasix LR 500 mL bolus requested Hypertension: Continue antihypertensive regimen Full code Cardiac diet DVT prophylaxis not needed patient is supratherapeutic Attestations 2 Medical Necessity Statement*: Anticipating discharge within 48 hours Diagnoses S/P AVR (aortic valve replacement) Z95.2 Anticoagulant long-term use Z79.01 Gout M10.9 Obstructive sleep apnea G47.33 Bronchitis J40 Hemoptysis R04.2
[2024-11-14 20:02] LABS: Procalcitonin 0.12 ng/mL (0-0.5); Thyroid Stimulating Hormone 0.99 uIU/mL (0.27-4.20)
--- NOTE | 2024-11-14 20:33 | ECG_ITS ---
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 Measurements Intervals [place] Rate: 100 P: 0 ID: 0 QRS: -18 QRSD: 100 T: 77 QT: 338 QTc: 436 Interpretive Statements ATRIAL FIBRILLATION WITH RAPID VENTRICULAR RESPONSE SEPTAL MYOCARDIAL INFARCTION , OF INDETERMINATE AGE [40+ ms Q WAVE IN V1/V2] Compared to ECG 11/14/2024 17:01:14 No significant changes Electronically Signed On 11-15-2024 13:33:56 LUMBER TYING MACHINE OPERATOR by Noe Palacios M.D. [id number]
[2024-11-14 20:49] LABS: Troponin 5 6HR 24.67 ng/L (0-10); Troponin 5 6HR Delta -0.33 ng/L (0-12)
[2024-11-14] MEDS: doxycycline 100 MG in sodium chloride 0.9% (plus) 100 ML IV (22:34)
[2024-11-14] MEDS: sodium chloride 0.9% 500 ML 999 ML IV (22:34)
[2024-11-14] MEDS: hyDRALAzine 25 mg Tablet PO (22:35)
[2024-11-15 00:04] VITALS: BP 173/74; PULSE 108; RESP 14; O2SAT 98
[2024-11-15 00:45] VITALS: PULSE 107
[2024-11-15 04:00] VITALS: BP 164/100; PULSE 105; RESP 21; O2SAT 95
[2024-11-15 05:15] LABS: Basophils % 0.1 %; Hematocrit 35.7 % (36-47); Lymphocytes # 1.9 10^3/uL (0.8-4.8); Lymphocytes % 17.5 %; Mean Corpuscular HGB Conc 33.6 g/dL (30-55); Mean Corpuscular Hemoglobin 30.2 pg (27-33); Mean Corpuscular Volume 89.7 fl (85-98); Mean Platelet Volume 10.5 fL (7.4-10.4); Monocytes # 0.1 10^3/uL (0.2-0.9); Monocytes % 0.9 %; Neutrophils # 8.74 10^3/uL (1.8-7.7); Neutrophils % 80.9 %; Nucleated Red Blood Cells % 0 %; Platelet Count 284 10^3/cmm (157-399); Red Blood Count 3.98 10^6/uL (3.85-5.65); Red Cell Distribution Width 13.9 % (12.1-15.1)
[2024-11-15 05:40] LABS: Anion Gap 28.2 (5-19); Blood Urea Nitrogen 50 mg/dL (8-23); C Reactive Protein 126.4 mg/L (0.0-4.9); Calcium 10.5 mg/dL (8.5-10.5); Carbon Dioxide 20 mmol/L (22-29); Chloride 89 mmol/L (98-107); Creatinine Clr Calc Pharmacy 31.1402; Glucose 131 mg/dL (65-115); Magnesium 2.1 mg/dL (1.7-2.3); Osmolality Calculated 291 mOsm/kg (285-295); Potassium 4.2 mmol/L (3.5-5.1); Sodium 133 mmol/L (136-145)
[2024-11-15] MEDS: hyDRALAzine 25 mg Tablet PO (08:04)
[2024-11-15] MEDS: metoprolol tartrate 50 mg Tablet 100 MG PO (08:04)
[2024-11-15] MEDS: doxycycline 100 mg Tablet PO (08:04)
[2024-11-15] MEDS: allopurinol 300 mg Tablet PO (08:04)
[2024-11-15] MEDS: sennosides-docusate Tablet 1 TAB PO (08:05)
[2024-11-15] MEDS: acetaminophen 500 mg Tablet PO (08:14)
[2024-11-15 08:54] VITALS: PULSE 87; RESP 17; O2SAT 98
--- NOTE | 2024-11-15 09:51 | P.DS_ITS ---
Discharge Providers Date of Admission: 11/14/24 19:29 Date of Discharge: November 15, 2024 Attending Provider at Admission: Chito Dickerson MD Attending Provider at Discharge: Erlin Wright Primary Care Provider: Lowell Dumas MD Diagnoses at Discharge Discharge Diagnosis (1) S/P AVR (aortic valve replacement): Status: Acute Permanent problem details: Mechanical (2) Anticoagulant long-term use: Status: Acute (3) Gout: Status: Acute (4) Obstructive sleep apnea: Status: Acute (5) Bronchitis: Status: Acute (6) Hemoptysis: Status: Acute Reason for Visit Reason for Visit: afib Brief History: Elena Gaines is a 84 year old female with history of chronic anticoagulation with Coumadin, mechanical aortic valve, went to urgent care clinic for recurrent bouts of cough, generalized weakness and fatigue and blood in her sputum. Patient has been noticing excessive bouts of cough and recent blood in her sputum for last 2 to 3 days, she has not noticed any fever, no chest pain or diarrhea. P no active chest pain. From urgent care clinic she was sent to the ER for further evaluation for concern related to A-fib RVR she was tachycardic, initially she was in A-fib RVR on arrival which converted to sinus rhythm spontaneously, clinically she looks dehydrated, at home she takes Lasix on daily basis She has leukocytosis to receive doxycycline CT chest did not show pneumonia ER physician gave her vitamin K, troponin trending down She does not have history of A-fib at the time of my evaluation she is in sinus rhythm heart rate 10 5-1 10 For dehydration we will give her 500 mL LR bolus Hospital Course Hospital Course She was hospitalized on cardiac stepdown unit and converted to sinus rhythm spontaneously. INR on recheck came down to 4.2. Creatinine with improvement down to 1.5. She is given a course of doxycycline for bronchitis with mild hemoptysis. She is otherwise feeling well. With good improvement and with incoming severe winter weather she preferred to return home earlier this morning, she will hold warfarin today and tomorrow and resume warfarin at reduced dose of 4 mg daily starting on Saturday, and follow-up for INR reassessment this coming week with her primary provider. She may include small amounts of food with vitamin K content to help maintain consistent vitamin K levels and help reduce INR fluctuation. She knows to seek medical attention in case of any worsening or new concerning symptoms. Right side thyroid nodule was incidentally seen on chest CT. TSH was normal. Discussed with her to follow-up. Please continue workup of the nodule in office. She had minimally elevated liver parameters, she is asked to hold statin for now, please reassess transaminases and ALP. Physical Exam Narrative: Accompanied by family. Const: COMMON NORMALS: patient oriented x3 and alert GENERAL APPEARANCE: cooperative ORIENTATION/CONSCIOUSNESS: Yes awake HENMT: COMMON NORMALS: oropharynx normal Neck/C-Spine: COMMON NORMALS: no JVD Resp: COMMON NORMALS: normal respiratory effort and clear to auscultation bilaterally AUSCULTATION: clear to auscultation bilaterally Cardio: COMMON NORMALS: no JVD, regular rhythm, S1 normal heart sound present, S2 normal heart sound present and No murmurs present (Cardio) RHYTHM: regular rhythm HEART SOUNDS: S1 normal heart sound present and S2 normal heart sound present GI: COMMON NORMALS: Normal to inspection, nondistended, normoactive bowel sounds present, Soft to palpation and non-tender PALPATION: Yes Soft to palpation Extremity: COMMON NORMALS: no joint enlargement and no pedal edema Neuro: COMMON NORMALS: patient oriented x3 and moves all extremities SENSORIUM/ORIENTATION: Yes alert Skin: COMMON NORMALS: no rashes or lesions noted GENERAL SKIN EXAM: no rashes or lesions noted Discharge Data Studies Completed and Pending Completed Studies During Hospitalization Category Date Time Status CT chest wo con [id number] Stat Cat Scan 11/14/24 16:09 Completed XR chest 1V portable [id number] Stat Exams 11/14/24 14:33 Completed Pending at discharge Category Date Time Status Blood Culture Stat Lab 11/14/24 14:56 Results CBC Auto Diff [Complete Blood Count w/Auto] AM LABS Lab 11/16/24 04:00 Ordered Comprehensive Metabolic Panel AM LABS Lab 11/16/24 04:00 Ordered Prothrombin Time INR AM LABS Lab 11/16/24 04:00 Ordered Prothrombin Time INR AM LABS Lab 11/17/24 04:00 Ordered Vitamin K Routine Lab 11/14/24 17:55 Received Radiology Impressions Chest X-Ray 11/14/24 14:33 IMPRESSION: 1. No acute cardiopulmonary abnormality. Chest CT 11/14/24 16:09 IMPRESSION: 1. No evidence of acute abnormality within limitations of a noncontrast exam. 2. Right-sided thyroid nodule. Correlation with thyroid function tests and follow-up outpatient thyroid ultrasound is recommended. Laboratory Results WBC 10.80 10^3/uL (3.29-11.43) 11/15/24 04:15 RBC 3.98 10^6/uL (3.85-5.65) 11/15/24 04:15 Hgb 12.00 g/dL (11.27-16.99) 11/15/24 04:15 Hct 35.7 % (36-47) L 11/15/24 04:15 MCV 89.7 fl (85-98) 11/15/24 04:15 MCH 30.2 pg (27-33) 11/15/24 04:15 MCHC 33.6 g/dL (30-55) 11/15/24 04:15 RDW 13.9 % (12.1-15.1) 11/15/24 04:15 Plt Count 284 10^3/cmm (157-399) 11/15/24 04:15 MPV 10.5 fL (7.4-10.4) H 11/15/24 04:15 Neut % (Auto) 80.9 % 11/15/24 04:15 Lymph % (Auto) 17.5 % 11/15/24 04:15 [place] % (Auto) 0.9 % 11/15/24 04:15 Eos % (Auto) 0.0 % 11/15/24 04:15 Baso % (Auto) 0.1 % 11/15/24 04:15 Neut # (Auto) 8.74 10^3/uL (1.8-7.7) H 11/15/24 04:15 Lymph # (Auto) 1.9 10^3/uL (0.8-4.8) 11/15/24 04:15 [place] # (Auto) 0.1 10^3/uL (0.2-0.9) L 11/15/24 04:15 Eos # (Auto) 0.0 10^3/uL (0.0-0.8) 11/15/24 04:15 Baso # (Auto) 0.0 10^3/uL (0.0-0.1) 11/15/24 04:15 Nucleated RBC % (auto) 0 % 11/15/24 04:15 Nucleated RBCs # 0.0 /100WBC 11/15/24 04:15 PT 42.70 SECONDS (12.1-14.9) H D 11/15/24 04:15 INR 4.20 (0.8-1.2) H 11/15/24 04:15 APTT 166.6 SECONDS (23.9-36.7) H* 11/14/24 14:51 Sodium 133 mmol/L (136-145) L 11/15/24 04:15 Potassium 4.2 mmol/L (3.5-5.1) 11/15/24 04:15 Chloride 89 mmol/L (98-107) L 11/15/24 04:15 Carbon Dioxide 20 mmol/L (22-29) L 11/15/24 04:15 Anion Gap 28.2 (5-19) H 11/15/24 04:15 BUN 50 mg/dL (8-23) H 11/15/24 04:15 Creatinine 1.5 mg/dL (0.5-0.9) H 11/15/24 04:15 GFR Calculation Not Reportable 11/15/24 04:15 Glucose 131 mg/dL (65-115) H 11/15/24 04:15 Calculated Osmolality 291 mOsm/kg (285-295) 11/15/24 04:15 Lactic Acid 1.8 mmol/L (0.5-2.2) 11/14/24 14:51 Calcium 10.5 mg/dL (8.5-10.5) 11/15/24 04:15 Magnesium 2.1 mg/dL (1.7-2.3) 11/15/24 04:15 Total Bilirubin 0.3 mg/dL (0.15-1.2) 11/14/24 14:51 AST 44 U/L (0-32) H 11/14/24 14:51 ALT 36 U/L (0-33) H 11/14/24 14:51 Alkaline Phosphatase 123 U/L (35-105) H 11/14/24 14:51 Troponin T Baseline 25 ng/L (0-10) H 11/14/24 14:51 Troponin T 120 Minute 23.09 ng/L (0-10) H 11/14/24 17:55 Delta Troponin T -1.91 ABS# (0-10) L 11/14/24 17:55 Troponin T Hi Sens 6Hr 24.67 ng/L (0-10) H 11/14/24 20:26 Troponin T Hi Sens 6Hr Delta -0.33 ng/L (0-12) L 11/14/24 20:26 C-Reactive Protein 126.4 mg/L (0.0-4.9) H 11/15/24 04:15 NT-Pro-B Natriuret Pep 1787 pg/mL (0-450) H 11/14/24 14:51 Total Protein 8.1 g/dL (6.6-8.7) 11/14/24 14:51 Albumin 4.2 g/dL (3.5-5.2) 11/14/24 14:51 Globulin 3.9 g/dL (1.3-4.6) 11/14/24 14:51 Procalcitonin 0.12 ng/mL (0-0.5) 11/14/24 14:51 TSH 0.98 uIU/mL (0.27-4.20) 11/14/24 14:51 TSH 0.99 uIU/mL (0.27-4.20) 11/14/24 14:51 Urine Color Dark yellow (Yellow) A 11/14/24 17:38 Urine Appearance Clear (CLEAR) 11/14/24 17:38 Urine pH 5.0 (5-7) 11/14/24 17:38 Ur Specific [place] 1.022 (1.005-1.030) 11/14/24 17:38 Urine Protein Negative (Negative) 11/14/24 17:38 Urine Glucose (UA) Negative (Normal) 11/14/24 17:38 Urine Ketones 1+ (Negative) H 11/14/24 17:38 Urine Blood Negative (Negative) 11/14/24 17:38 Urine Nitrate Negative (Negative) 11/14/24 17:38 Urine Bilirubin Negative (Negative) 11/14/24 17:38 Urine Urobilinogen 0.2 mg/dL (Negative) 11/14/24 17:38 Ur Leukocyte Esterase 1+ (Negative) A 11/14/24 17:38 Urine RBC 0-2 /hpf (0-2) 11/14/24 17:38 Urine WBC 11-20 /hpf (0-5) H 11/14/24 17:38 Ur Squamous Epith Cells 0-5 /hpf (0-5) 11/14/24 17:38 Amorphous Sediment Not Reportable 11/14/24 17:38 Urine Bacteria None seen /hpf (NONE) 11/14/24 17:38 Hyaline Casts 8.26 /lpf 11/14/24 17:38 Adenovirus (PCR) Not detected (NOT DETECT) 11/14/24 16:59 C. pneumoniae DNA (PCR) Not detected (NOT DETECT) 11/14/24 16:59 Coronavirus (PCR) Negative (Negative) 11/14/24 14:46 Coronavirus 229E (PCR) Not detected (NOT DETECT) 11/14/24 16:59 Human Metapneumovir PCR Not detected (NOT DETECT) 11/14/24 16:59 Influenza A (H1) PCR Not detected (NOT DETECT) 11/14/24 16:59 Influenza A (PCR) Negative (Negative) 11/14/24 14:46 Influ A (H1/09) PCR Not detected (NOT DETECT) 11/14/24 16:59 Influenza A (H3) PCR Not detected (NOT DETECT) 11/14/24 16:59 Influenza Type A (PCR) Not detected (NOT DETECT) 11/14/24 16:59 Influenza Type B (PCR) Not detected (NOT DETECT) 11/14/24 16:59 M. pneumoniae (PCR) Not detected (NOT DETECT) 11/14/24 16:59 Parainfluenza 1 (PCR) Not detected (NOT DETECT) 11/14/24 16:59 Parainfluenza 2 (PCR) Not detected (NOT DETECT) 11/14/24 16:59 Parainfluenza 3 (PCR) Not detected (NOT DETECT) 11/14/24 16:59 Parainfluenza 4 (PCR) Not detected (NOT DETECT) 11/14/24 16:59 RSV (PCR) Negative (Negative) 11/14/24 14:46 RSV Type A (PCR) Not detected (NOT DETECT) 11/14/24 16:59 RSV Type B (PCR) Not detected (NOT DETECT) 11/14/24 16:59 Entero/Rhino (PCR) Not detected (NOT DETECT) 11/14/24 16:59 SARS-CoV-2 (PCR) Not detected (NOT DETECT) 11/14/24 16:59 Vitals Last Vital Signs Temp 98.2 F 11/14/24 14:33 Pulse 87 11/15/24 08:54 Resp 17 11/15/24 08:54 BP 164/100 11/15/24 04:00 Pulse Ox 98 11/15/24 08:54 O2 Del Method Room Air 11/15/24 08:54 Discharge Plan Discharge Patient Disposition: Home Condition: Stable Prescriptions: New doxycycline monohydrate 100 mg Tablet 100 mg PO BID Qty: 9 0RF Continued metoprolol tartrate 50 mg tablet 50 mg PO BID Qty: 180 3RF allopurinol 300 mg tablet 300 mg PO DAILY Qty: 90 11RF warfarin 4 mg tablet 4 mg PO DAILY Qty: 30 11RF furosemide 40 mg tablet 40 mg PO DAILY Qty: 90 11RF spironolactone 25 mg tablet 25 mg PO BID Qty: 60 11RF hydralazine 25 mg tablet 25 mg PO BID Qty: 180 3RF glucosamine sulfate [Glucosamine] 500 mg Tablet 2,000 mg PO DAILY Rx Instructions: give with meal/snack docusate sodium [Stool Softener] 100 mg Capsule 100 mg PO BID magnesium 200 mg Tablet 400 mg PO DAILY cholecalciferol (vitamin D3) [Vitamin D3] 50 mcg (2,000 unit) Capsule 50 mcg PO DAILY Changed warfarin 2 mg tablet 4 mg PO DAILY Qty: 1 0RF Held simvastatin 40 mg tablet 40 mg PO DAILY Qty: 90 11RF Hold Instructions: Resume on 11/23/24. Discontinued warfarin 3 mg tablet 3 mg PO DAILY Qty: 90 3RF Rx Instructions: total daily dose of 7mg daily Discharge Orders: Discharge Order (Routine); Ordered 11/15/24 Ordered By: Erlin Wright Referrals: Lowell Dumas MD [Primary Care Provider] - 4-7 days (Please call for an follow-up appointment with 4 to 7 days. Thank you ) Patient Instructions: Bronchitis (Acute) - Adult, Doxycycline (By mouth), A-fib (Atrial Fibrillation) (DC), Vitamin K in Foods (GEN) Activity Restrictions/Additional Instructions: As discussed, please hold warfarin today and tomorrow, resume warfarin on Saturday at 4 mg daily. Please see your primary provider this week in 3-5 days for reassessment of atrial fibrillation control, as well as reassessment of INR and warfarin dosing. A pamphlet with vitamin K content in foods is included. Vitamin K usually reverses warfarin, but consider including small amounts of foods with vitamin K consistently each day, this may help reduce a variation of INR. Complete short antibiotic course with doxycycline for bronchitis, follow-up with your primary doctor for reassessment. Additionally follow-up with your primary doctor regarding incidentally seen right side thyroid nodule. Your TSH was normal. Have your primary doctor follow-up mildly elevated liver numbers, please hold simvastatin until recheck labs are obtained Discharge Attestations Time Spent in Discharge Care*: greater than 30 min Quality Metrics Clinical Quality Measures [ No reported AMI, CVA or VTE this stay] Coding Level of Care Code 83776 Total time (in minutes) for Discharge: 40 Diagnoses S/P AVR (aortic valve replacement) Z95.2 Anticoagulant long-term use Z79.01 Gout M10.9 Obstructive sleep apnea G47.33 Bronchitis J40 Hemoptysis R04.2
[2024-11-15 10:38] VITALS: BP 161/74; PULSE 86; RESP 19; O2SAT 97
[2024-11-15 12:23] VITALS: BP 139/82; PULSE 82; RESP 17; TEMP 37.1; O2SAT 94
== END 2024-11-15 12:25 | disposition home or self-care (01) ==
LOC: ER 14:51 → CSU 20:08
PROVIDERS: Admitting Provider Internal Medicine; Emergency Provider Emergency Medicine; PCP Family Medicine; Visit Provider Internal Medicine
DX: J40 Bronchitis, not specified as acute or chronic (principal); R04.2 Hemoptysis; G47.33 Obstructive sleep apnea (adult) (pediatric); M10.9 Gout, unspecified; Z79.01 Long term (current) use of anticoagulants; Z95.2 Presence of prosthetic heart valve; I48.91 Unspecified atrial fibrillation; E86.0 Dehydration; I25.10 Atherosclerotic heart disease of native coronary artery without angina pectoris; I48.0 Paroxysmal atrial fibrillation; I10 Essential (primary) hypertension
CPT/HCPCS: 36415; 71045; 71250; 80048; 80053; 81001; 83605; 83735; 83880; 84145; 84443; 84484; 84597; 85025; 85610; 85730; 86140; 87040; 87486; 87581; 87633; 87637; 93005; 96365; 96375; 96376; 99285; A9270; G0378; J1100; J3430; J3490; J7040

== ENCOUNTER 2025-01-25 07:44 | Outpatient (CLI) | payer MEDICARE, SELFPAY ==
--- NOTE | 2025-01-25 07:51 | USCV_ITS ---
Elena Gaines Age: 84 Gender: F : 1940 Exam Date: 01/25/2025 07:57 Ordering Phys: Lowell Duams MD Technologist: Exam Location: [facility] – [place] Indication: afib BP: 130 / 80 HR: 106 Rhythm: Sinus Technical Quality: Adequate MEASUREMENTS (Male / Female) Normal Values 2D ECHO LV Diastolic Diameter PLAX 5.4 cm 4.2 - 5.9 / 3.9 - 5.3 cm IVS Diastolic Thickness 1.4 cm 0.6 - 1.0 / 0.6 - 0.9 cm IVS Systolic Thickness 1.8 cm LVPW Diastolic Thickness 1.1 cm 0.6 - 1.0 / 0.6 - 0.9 cm LVPW Systolic Thickness 1.8 cm LVOT Diameter 2.0 cm LV Ejection Fraction 2D Teich 68.2 % LV Ejection Fraction MOD 4C 57.6 % LV Ejection Fraction MOD 2C 67.7 % LV Ejection Fraction 2C AL 68.6 % LA Diameter 4.3 cm RA Systolic Volume 4C AL 39.1 ml RA Systolic Volume 4C MOD 37.2 ml Aorta at Sinotubular Diameter 3.3 cm M-MODE LA Ao Ratio MM 1.3 MV E Point Septal Separation 1.0 cm AV Cusp Separation MM 1.4 cm DOPPLER AV Peak Velocity 274.3 cm/s LVOT Peak Velocity 109.0 cm/s AV Area Cont Eq vti 1.6 cm squared AV Area Cont Eq pk 1.3 cm squared MV Peak Velocity 125.0 cm/s TR Peak Velocity 173.0 cm/s TR Peak Gradient 12.0 mmHg TV Peak E Velocity 100.0 cm/s PV Peak Velocity 114.0 cm/s FINDINGS Left Ventricle Normal left ventricular size and systolic function, EF 68%.Moderate left ventricular hypertrophy. No regional wall motion abnormalities. Right Ventricle The right ventricle is normal in size and function. Right Atrium Mildly increased right atrial size. Left Atrium Mildly increased left atrial size. Mitral Valve Moderate mitral annular calcification. Aortic Valve Mild aortic valve regurgitation. Peak velocity aortic valve is 2.74 m second with a peak gradient of 30 mmHg and a valve are 1.6 cm squared Tricuspid Valve No gross abnormalities noted Pulmonic Valve Trace pulmonary valve regurgitation. Pericardium Normal pericardium without effusion. Aorta Normal ascending aorta dimension. IVC Inferior vena cava not visualized. CONCLUSIONS Normal left ventricular size and systolic function, EF 68%.Moderate left ventricular hypertrophy. No regional wall motion abnormalities. Mild biatrial enlargement Moderate mitral annular calcification. Mild aortic valve stenosis with a valve area of 1.6 cm squared. Peak velocity of 2.73 m/s with a peak gradient of 30 mmHg Trace pulmonary valve regurgitation. There is no pericardial effusion. There are no intracardiac masses. Compared to the study from 08/11/2021, there is development of aortic valve stenosis Dr Noe Palacios MD FAC (Electronically Signed) Final Date: 28 January 2025 21:10 S
== END 2025-01-25 07:45 | disposition home or self-care (01) ==
PROVIDERS: PCP Family Medicine; Visit Provider Family Medicine
DX: I48.91 Unspecified atrial fibrillation (principal); I51.7 Cardiomegaly; I34.81 Nonrheumatic mitral (valve) annulus calcification; I35.1 Nonrheumatic aortic (valve) insufficiency; R93.1 Abnormal findings on diagnostic imaging of heart and coronary circulation
CPT/HCPCS: 93306

== ENCOUNTER 2025-11-04 15:41 | Outpatient (CLI) | payer MEDICARE, SELFPAY ==
[2025-11-04 16:27] LABS: INR 2.46 (0.8-1.2); Prothrombin Time 28.10 SECONDS (12.1-14.9)
== END 2025-11-04 15:42 | disposition home or self-care (01) ==
PROVIDERS: PCP Family Medicine; Visit Provider Family Medicine
DX: Z01.89 Encounter for other specified special examinations (principal); R78.9 Finding of unspecified substance, not normally found in blood
CPT/HCPCS: 36415; 85610